=== PATIENT | female | born 1985 | race American Indian/Alaskan Native ===

== ENCOUNTER 2019-12-14 08:27 | Outpatient (CLI) | payer MEDICAID ==
[2019-12-14 09:33] LABS: Bacteria,Urine 2+ /HPF (Negative); Bilirubin,Urine NEG (Negative); Blood,Urine SM (Negative); Color,Urine Yellow (Yellow); Mucus,Urine 1+ /HPF; Protein,Urine <15 mg/dL mg/dL (Negative); Urobilinogen,Urine < 2.0 mg/dL (<2.0)
[2019-12-14 11:22] VITALS: BP 125/72
== END 2019-12-14 11:31 | disposition home or self-care (01) ==
LOC: TRG 08:27
PROVIDERS: ATTEND Obstetrics & Gynecology
DX: O26.893 Other specified pregnancy related conditions, third trimester (principal); O47.03 False labor before 37 completed weeks of gestation, third trimester; R51 Headache
CPT/HCPCS: 59025; 81001; 82150; 82570

== ENCOUNTER 2020-01-07 13:12 | Inpatient (IN) | payer MEDICAID ==
[2020-01-07] MEDS ORDERED: ePHEDrine SULFATE 50 MG/1 ML INJ IV PRN (14:02)
[2020-01-07] MEDS ORDERED: MINERAL OIL 30 ML ORAL LIQD PO PRN (14:02)
[2020-01-07] MEDS ORDERED: TERBUTALINE 1 MG/1 ML INJ IVP PRN (14:02)
[2020-01-07] MEDS ORDERED: LIDOCAINE (2%) 20 MG/1 ML VIAL 20 ML MDV INFILTRATI ONE (14:02)
[2020-01-07] MEDS ORDERED: AMPICILLIN/NS 2 GM/100 ML 2 GM/100 ML BAG IV ONE (14:02)
[2020-01-07] MEDS ORDERED: TERBUTALINE 1 MG/1 ML INJ SUB-Q PRN (14:02)
[2020-01-07] MEDS ORDERED: OXYTOCIN 20 UNIT/1000ML DRIP 20 UNITS/1,000 ML BAG IV SCH (15:00)
[2020-01-07] MEDS ORDERED: OXYTOCIN DRIP 30 UNITS/500 ML BAG IV SCH (15:00)
[2020-01-07] MEDS: LACTATED RINGERS 1,000 ML IV SCH ×3 (15:30→19:30)
[2020-01-07 16:02] LABS: Hematocrit 35.2 % (30.3-42.9); Hemoglobin 11.5 gm/dl (10.1-14.3); Mean Corpuscular HGB Conc 33 % (30-34); Mean Corpuscular Volume 78 fl (79-97); Platelet Count 240 K/mm3 (140-440); Red Blood Count 4.52 M/mm3 (3.65-5.03); Red Cell Distribution Width 15.5 % (13.2-15.2)
[2020-01-07 16:10] LABS: Bilirubin,Urine NEG (Negative); Blood,Urine SM (Negative); Color,Urine Yellow (Yellow); Mucus,Urine FEW /HPF; Protein,Urine <15 mg/dL mg/dL (Negative); Urobilinogen,Urine < 2.0 mg/dL (<2.0)
[2020-01-07 16:24] LABS: Alanine Aminotransferase 11 units/L (7-56)
[2020-01-07] MEDS ORDERED: BUTORPHANOL 2 MG/1 ML INJ IV PRN (17:52)
[2020-01-07] MEDS ORDERED: fentaNYL 100 MCG/2 ML INJ IV PRN (17:52)
--- NOTE | 2020-01-07 18:03 | History and Physical Report ---
History of Present Illness Date of examination: 01/07/20 Date of admission: 01/07/20 13:12 Chief complaint: Leaking fluid History of present illness: 34yo G 5 P 2 0 2 2 @ 39 weeks 1 day here for direct admission from the office secondary to spontaneous rupture of membranes. She reports leaking clear fluid since about 5am. SROM confirmed at the office. She denies headadche, visual disturbances or RUQ pain. She is a [employer] patient who initiated care at 12 weeks gestation. 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 She has a h/o hirsutism. LABS: B pos, Antibody Screen neg, Pap Smear (ASCUS, neg HR HPV), RI, VDRL NR, HBsAg neg, HIV neg, HSV II pos, MSAFP neg, Diabetes Screen 137, 3hr GTT (95, 155, 135, 74), GC/CT/Trich neg, GBS pos. 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 denies: smoking, alcohol abuse, prescription drug abuse, IV drug use - Obstetrical History Expected Date of Delivery: 01/13/20 Actual Gestation: 39 Week(s) 1 Day(s) : 5 Para: 2 Hx # Term Pregnancies: 2 Number of Pregnancies: 0 Spontaneous Abortions: 2 Induced : 0 Number of Living Children: 2 #1 Infant Gender: Female year: 2,004 (02/20/2004) Birthweight: 3.033 kg (6 lbs 11 oz) Method of Delivery: Vaginal Gestational age at delivery: 39 Complications: none #2 Gender: Female year: 2, (06/27/2007) Birthweight: 3.515 kg (7 lbs 12 oz) Method of Delivery: Vaginal Gestational age at delivery: 40 Complications: none Medications and Allergies Allergies Allergy/AdvReac Type Severity Reaction Status Date / Time No Known Allergies Allergy Unverified 12/14/19 08:59 Active Meds: Active Medications Butorphanol Tartrate (Stadol) 2 mg IV Q2H PRN PRN Reason: Pain , Severe (7-10) Ephedrine Sulfate (Ephedrine Sulfate) 10 mg IV Q2M PRN PRN Reason: Hypotension Fentanyl (Sublimaze) 100 mcg IV Q2H PRN PRN Reason: Labor Pain Oxytocin/Sodium Chloride (Pitocin/Ns 20 Unit/1000ml Drip) 20 units in 1,000 mls @ 125 mls/hr IV DIRECT ANGEL Oxytocin/Sodium Chloride (Pitocin/Ns 30 Unit/500ml) 30 units in 500 mls @ 1 mls/hr IV TITR ANGEL; Protocol Last Titration: 01/07/20 17:11 Dose: 1 milliunits/min, 1 mls/hr Documented by: Lactated Ringer's (Lactated Ringers) 1,000 mls @ 125 mls/hr IV DIRECT ANGEL Last Admin: 01/07/20 17:05 Dose: 125 mls/hr Documented by: Mineral Oil (Mineral Oil) 30 ml PO QHS PRN PRN Reason: Constipation Terbutaline Sulfate (Brethine) 0.25 mg SUB-Q ONCE PRN PRN Reason: Hyperstimulation/Hypertonicity Terbutaline Sulfate (Brethine) 0.25 mg IVP ONCE PRN PRN Reason: Hyperstimulation/Hypertonicity Review of Systems All systems: negative - Vital Signs Vital signs: Vital Signs Pulse BP 87 119/69 01/07/20 14:14 01/07/20 14:14 Temp Pulse Resp BP Pulse Ox 88 132/63 96 01/07/20 17:32 01/07/20 17:32 01/07/20 15:34 - Obstetrical FHR: auscultation normal, category 2 FHR comments: baseline 130, minimal variability, 15x15 accels, no decels Uterine Contraction Monitor Mode: External Cervical Dilatation: 3 Cervical Effacement Percentage: 70 station: -3 Uterine Contraction Pattern: Regular Results Result Diagrams: 01/07/20 15:45 01/07/20 15:45 Abnormal lab results 01/07/20 01/07/20 Range/Units 15:45 15:45 MCV 78 L (79-97) fl MCH 25 L (28-32) pg RDW 15.5 H (13.2-15.2) % Creatinine 0.6 L (0.7-1.2) mg/dL All other labs normal. Assessment and Plan - Patient Problems (1) 39 weeks gestation of Current Visit: Yes Status: Acute (2) Spontaneous rupture of amniotic membranes Current Visit: Yes Status: Acute (3) Active labor at term Current Visit: Yes Status: Acute Plan to address problem: Admit to L&D with routine labor orders Start Oxytocin for labor augmentation Anticipate vaginal delivery (4) Group B Streptococcus carrier, +RV culture, currently Current Visit: Yes Status: Acute Plan to address problem: start ampicillin for GBS prophylaxis (5) Elevated BP without diagnosis of hypertension Current Visit: Yes Status: Acute Plan to address problem: PIH labs ordered - WNL
[2020-01-07 18:07] LABS: Amphetamine Screen,Urine PRESUMPTIVE NEGATIVE; Benzodiazepines Screen,Urine PRESUMPTIVE NEGATIVE; Cannabinoid Screen,Urine PRESUMPTIVE NEGATIVE; Cocaine Screen,Urine PRESUMPTIVE NEGATIVE; Methadone Screen,Urine PRESUMPTIVE NEGATIVE; Opiate Screen,Urine PRESUMPTIVE NEGATIVE
[2020-01-07] MEDS ORDERED: AMPICILLIN/NS 1 GM/50 ML 1 GM/50 ML BAG IV ONE (19:28)
[2020-01-07] MEDS ORDERED: AMPICILLIN/NS 1 GM/50 ML 1 GM/50 ML BAG ONE (19:30)
[2020-01-07] MEDS ORDERED: ONDANSETRON 4 MG/2 ML INJ IV PRN (22:07)
[2020-01-07] MEDS ORDERED: LANOLIN/ZINC/DIMETHICONE (LANSINOH) 7 GM TP PRN (22:07)
[2020-01-07] MEDS ORDERED: diphenhydrAMINE 25 MG CAP PO PRN (22:07)
[2020-01-07] MEDS ORDERED: PROMETHAZINE 25 MG RECT SUPP PR PRN (22:07)
[2020-01-07] MEDS ORDERED: WITCH HAZEL/ GLYCERIN PAD TP PRN (22:07)
[2020-01-07] MEDS ORDERED: PROMETHAZINE 25 MG TAB PO PRN (22:07)
[2020-01-07] MEDS ORDERED: HYDROcodone/ACETAMINOPHEN 5-325 MG TAB PO PRN (22:07)
[2020-01-07] MEDS ORDERED: MAGNESIUM HYDROXIDE (MOM) ORAL LIQD UDC PO PRN (22:07)
[2020-01-07] MEDS ORDERED: ACETAMINOPHEN 325 MG TAB PO PRN (22:07)
--- NOTE | 2020-01-07 22:15 | Procedure Note ---
OB Delivery Note - Delivery Date of Delivery: 01/07/20 (21:58) Surgeon: SERJIO MCDONALD Estimated blood loss: other (250ml) - Vaginal Delivery position: OA Intrapartum events: none Delivery induction: oxytocin Delivery augmentation: pitocin Delivery monitor: external FHT, external uterine Route of delivery: Delivery placenta: spontaneous Delivery cord: 3 umbilical vessels Episiotomy: none Delivery laceration: none Delivery comments: Patient pushed over an intact perineum to delivery of a viable female with weight 3155gms and 8,9. No Nuchal cord. Delivery of the head and anterior shoulder atraumatic. Spontaneous cry at delivery. Baby placed on maternal abdomen with delayed cord clamping. Cord was clamped and cut after ~1 minute and baby handed to waiting NICU staff. An intact placenta with three vessel cord delivered spontaneously.Inspection of the vagina, cervix and perineum revealed intact anatomy with no lacerations. Two small hemostatic ab rasions noted at the introitus and right labia did not require repair. All sponge, needle and instrument counts correctx2. No complications. Mom and baby to in stable condition. EBL 250ml. - Infant A at 1 minute: 8 at 5 minutes: 9 Infant Gender: Female (weight 3155gms)
[2020-01-07] MEDS: IBUPROFEN 600 MG TAB PO SCH (23:32)
[2020-01-08] MEDS: IBUPROFEN 600 MG TAB PO SCH ×2 (06:12→13:59)
--- NOTE | 2020-01-08 10:19 | Progress Note ---
Assessment and Plan - Patient Problems (1) Status post vaginal delivery Current Visit: Yes Status: Acute Plan to address problem: Continue routine PP orders Anticipate d/c home tomorrow (2) Elevated blood pressure reading Current Visit: Yes Status: Acute Plan to address problem: Labatelol 200mg po BID Continue to monitor B/Ps F/U in 1 week post d/c in office for B/P check Subjective - Subjective Date of service: 01/08/20 Principal diagnosis: S/P / PPD#1; Elevated B/Ps Interval history: See admission H & P; OB delivery summary and PP progress notes Patient reports: appetite normal, voiding normally, pain well controlled, flatus, ambulating normally, other (Reports some frequent H/A's, denies visual changes) : doing well, bottle feeding Objective - Vital Signs Latest vital signs: Vital Signs Temp Pulse Resp BP BP Pulse Ox 01/08/20 07:52 98.3 F 72 18 130/83 97 01/08/20 07:12 18 01/08/20 06:12 18 01/08/20 04:31 98.0 F 63 20 145/65 96 01/08/20 00:32 18 01/08/20 00:30 98.3 F 67 18 142/67 99 01/07/20 23:29 98.4 F 74 18 136/78 97 01/07/20 23:25 74 134/70 01/07/20 22:59 76 150/74 01/07/20 22:46 80 163/79 01/07/20 22:29 85 150/82 01/07/20 22:27 81 152/78 01/07/20 22:08 91 H 97 01/07/20 22:03 90 97 01/07/20 21:58 107 H 98 01/07/20 21:53 97 H 97 01/07/20 21:48 97 H 97 01/07/20 21:43 96 H 97 01/07/20 21:38 96 H 97 01/07/20 21:33 85 97 01/07/20 21:32 94 H 93 01/07/20 21:30 81 143/82 01/07/20 21:29 94 H 188/90 01/07/20 21:28 98.3 F 86 24 98 01/07/20 21:23 98 H 98 01/07/20 21:18 91 H 96 01/07/20 21:13 100 H 98 01/07/20 21:08 82 98 01/07/20 21:03 93 H 97 01/07/20 20:59 94 H 137/86 94 01/07/20 20:58 90 95 01/07/20 20:53 87 96 01/07/20 20:51 94 H 140/88 01/07/20 20:48 82 97 01/07/20 20:43 97 H 98 01/07/20 20:38 103 H 99 01/07/20 20:33 97 H 97 01/07/20 20:31 92 H 171/90 01/07/20 20:28 102 H 97 01/07/20 20:23 90 97 01/07/20 20:18 95 H 97 01/07/20 20:00 92 H 138/87 01/07/20 19:31 92 H 140/82 01/07/20 18:59 92 H 119/68 01/07/20 17:32 88 132/63 01/07/20 17:30 83 148/79 01/07/20 16:15 77 156/81 01/07/20 15:34 98 H 96 01/07/20 15:29 94 H 97 01/07/20 15:24 86 96 01/07/20 15:19 87 97 01/07/20 15:14 89 131/75 97 01/07/20 15:09 89 96 01/07/20 15:04 95 H 96 01/07/20 14:59 81 97 01/07/20 14:57 98 H 94 01/07/20 14:54 81 96 01/07/20 14:49 83 94 01/07/20 14:44 82 97 01/07/20 14:39 83 96 01/07/20 14:34 87 96 01/07/20 14:29 84 97 01/07/20 14:15 98.3 F 01/07/20 14:14 87 119/69 Intake and Output 01/07/20 01/08/20 01/08/20 23:59 07:59 15:59 Intake Total 500.083 120 Output Total 400 400 Balance 100.083 -400 120 Intake: IV 500.083 Lactated Ringers 1,000 ml 500.000 @ 125 mls/hr IV DIRECT ANGEL Rx#:[id number] PITOCin/NS 30 UNIT/500ML 0.083 30 units In 500 ml @ 1 MILLIUNITS/MIN 1 mls/hr IV TITR ANGEL Rx#:[id number] Oral 120 Output: Urine 400 400 Void 400 400 Other: Total, Intake Amount 120 Total, Output Amount 400 400 # Voids Void 1 1 1 Estimated Blood Loss 250 - Exam Breasts: Present: normal Cardiovascular: Present: Regular rate Lungs: Present: Normal air movement Abdomen: Present: soft Uterus: Present: firm, fundal height below umbilicus (U-2) Extremities: Present: normal Deep Tendon Reflex Grade: Normal +2 - Labs Labs: Abnormal lab results 01/07/20 01/07/20 Range/Units 15:45 15:45 MCV 78 L (79-97) fl MCH 25 L (28-32) pg RDW 15.5 H (13.2-15.2) % Creatinine 0.6 L (0.7-1.2) mg/dL
[2020-01-08 10:46] LABS: Hemoglobin 9.6 gm/dl (10.1-14.3)
[2020-01-09 08:57] VITALS: BP 134/83
--- NOTE | 2020-01-09 11:59 | Progress Note ---
Assessment and Plan A: PP Day # 2 HTN Asymptomatic Anemia P: Follow Routine Orders Continue Labetolol 200mg PO; Continue at home Continue FeSO4 BID; continue at home D/C Home today RTO in one week Subjective - Subjective Date of service: 01/09/20 Principal diagnosis: S/P / PPD#1; Elevated B/Ps Patient reports: appetite normal, voiding normally, pain well controlled, flatus, ambulating normally [place]: doing well, bottle feeding Objective - Vital Signs Latest vital signs: Vital Signs Temp Pulse Resp BP BP Pulse Ox 01/09/20 10:12 80 134/83 01/09/20 08:14 98.0 F 80 20 134/83 97 01/09/20 04:35 80 20 118/71 01/09/20 00:48 97.9 F 85 20 107/58 96 01/08/20 16:41 98.5 F 78 18 111/68 95 01/08/20 13:59 72 130/83 Intake and Output 01/08/20 01/09/20 01/09/20 22:59 06:59 14:59 Intake Total 840 Balance 840 Intake: Oral 600 Intake, Free Water 240 Other: Total, Intake Amount 600 # Voids Void 3 - Exam Breasts: Present: normal Cardiovascular: Present: Regular rate Lungs: Present: Clear to auscultation, Normal air movement Abdomen: Present: normal appearance, soft, normal bowel sounds Uterus: Present: normal, firm, fundal height below umbilicus Extremities: Present: normal
--- NOTE | 2020-01-09 12:06 | Discharge Summary ---
Providers - Providers Date of Admission: 01/07/20 13:12 Date of discharge: 01/09/20 Attending physician: SERJIO MCDONALD MD Primary care physician: SERJIO MCDONALD MD Hospitalization Reason for admission: rupture of membranes Delivery: Episiotomy: none Laceration: none Other procedures: none complications: none Discharge diagnosis: IUP at term delivered [place] baby: female Condition at discharge: Good Disposition: DC-01 TO HOME OR SELFCARE Plan - Discharge Medications Prescriptions: Ibuprofen [Motrin] 600 mg PO Q8H PRN #30 tablet PRN Reason: Pain - Provider Discharge Summary Activity: routine, no sex for 6 weeks, no heavy lifting 4 weeks, no strenuous exercise Diet: routine Instructions: routine Additional instructions: [] Smoking cessation referral if applicable(refer to patient education folder for contact #) [] Refer to [facility] Booklet Call your doctor immediately for: * Fever > 100.5 * Heavy vaginal bleeding ( >1 pad per hour) * Severe persistent headache * Shortness of breath * Reddened, hot, painful area to leg or breast * Drainage or odor from incision. * Keep incision clean and dry at all times and follow doctor's instructions regarding bathing/showering - Follow up plan Follow up: SERJIO MCDONALD MD [Primary Care Provider] - 7 Days
[2020-01-09] MEDS: IBUPROFEN 600 MG TAB PO SCH (18:14)
== END 2020-01-09 14:00 | disposition home or self-care (01) | DRG 775 ==
LOC: LD 13:12 → OB 23:43
PROVIDERS: ADMIT Obstetrics & Gynecology; ATTEND Obstetrics & Gynecology
PROC: 10E0XZZ Delivery of Products of Conception, External Approach (ICD-10-PCS; principal; 2020-01-07)
PROC: 3E033VJ Introduction of Other Hormone into Peripheral Vein, Percutaneous Approach (ICD-10-PCS; 2020-01-07)
DX: O99.824 Streptococcus B carrier state complicating childbirth (principal); O99.02 Anemia complicating childbirth; D64.9 Anemia, unspecified; O16.4 Unspecified maternal hypertension, complicating childbirth; O99.214 Obesity complicating childbirth; E66.9 Obesity, unspecified; Z90.49 Acquired absence of other specified parts of digestive tract; Z80.3 Family history of malignant neoplasm of breast; Z80.42 Family history of malignant neoplasm of prostate; Z82.5 Family history of asthma and other chronic lower respiratory diseases; Z3A.39 39 weeks gestation of pregnancy; Z37.0 Single live birth
CPT/HCPCS: 36415; 80307; 81001; 82565; 83615; 84450; 84460; 84550; 85014; 85018; 85027; 86850; 86900; 86901; G0378; J0290; J2590; J7120

== ENCOUNTER 2021-06-17 08:48 | Emergency (ER) | payer MEDICAID ==
[2021-06-17] MEDS ORDERED: ASPIRIN 325 MG TAB PO ONE (09:05)
--- NOTE | 2021-06-17 09:26 | XRay Report ---
CHEST 2 VIEWS INDICATION / CLINICAL INFORMATION: CP WITH SOB. COMPARISON: None available. FINDINGS: SUPPORT DEVICES: None. HEART / MEDIASTINUM: The heart size and pulmonary vasculature are normal. The aorta is normal in [place]. LUNGS / PLEURA: No significant pulmonary or pleural abnormality. No pneumothorax. ADDITIONAL FINDINGS: The gallbladder is surgically absent. IMPRESSION: No acute findings. Signer Name: Carmine Garcia MD Signed: 06/17/2021 9:22 AM Workstation Name: [id number]
[2021-06-17 09:42] LABS: Basophils % (Auto) 0.2 % (0.0-1.8); Eosinophils % (Auto) 0.1 % (0.0-4.3); Hematocrit 36.6 % (30.3-42.9); Hemoglobin 11.8 gm/dl (10.1-14.3); Lymphocytes # (Auto) 1.7 K/mm3 (1.2-5.4); Lymphocytes % (Auto) 23.7 % (13.4-35.0); Mean Corpuscular HGB Conc 32 % (30-34); Mean Corpuscular Volume 78 fl (79-97); Monocytes # (Auto) 0.8 K/mm3 (0.0-0.8); Monocytes % (Auto) 11.3 % (0.0-7.3); Platelet Count 242 K/mm3 (140-440); Red Blood Count 4.68 M/mm3 (3.65-5.03); Red Cell Distribution Width 15.4 % (13.2-15.2)
[2021-06-17 09:59] LABS: C-Reactive Protein 0.9 mg/dL (0.00-1.30)
[2021-06-17 10:01] LABS: Alanine Aminotransferase 12 units/L (7-56); Albumin 3.8 g/dL (3.9-5); BUN/Creatinine Ratio 8; Blood Urea Nitrogen 6 mg/dL (7-17); Calcium 8.5 mg/dL (8.4-10.2); Hemolysis Index 3
--- NOTE | 2021-06-17 10:03 | Emergency Department Report ---
ED Chest Pain HPI - General Chief Complaint: Chest Pain Stated Complaint: CHEST PAIN, SOB, HEADACHE, BODY ACHES Time Seen by Provider: 06/17/21 09:18 Source: patient Mode of arrival: Ambulatory Limitations: No Limitations - History of Present Illness Initial Comments: 35-year-old male with no known past medical history presents complaining of chest pain which started last night. She describes the pain as intermittent, sharp lasting 1 to 2 minutes at a time. She also has felt very short of breath. This morning she started with a new cough productive of mucus. She also has a headache and runny nose today. The chest pain is nonradiating. There are no known aggravating or alleviating factors. In addition to these complaints, on review of systems she does not say she has had pain in her left calf just distal to the knee since all of this started. She has had no recent surgery, travel, or prolonged immobilization. She is not vaccinated against the novel coronavirus. Her LMP was May 31. Severity scale (0 -10): 5 - Related Data Home Medications Medication Instructions Recorded Confirmed Last Taken Colace CAP 1 tab PO DAILY 01/07/20 01/07/20 01/06/20 Iron 1 tab PO BID 01/07/20 01/07/20 01/06/20 Vitamin 1 tab PO DAILY 01/07/20 01/07/20 01/06/20 Previous Rx's Medication Instructions Recorded Last Taken Type Ibuprofen [Motrin] 600 mg PO Q8H PRN #30 tablet 01/08/20 Unknown Rx Allergies Allergy/AdvReac Type Severity Reaction Status Date / Time No Known Allergies Allergy Verified 06/17/21 08:52 Heart Score - HEART Score History: Slightly suspicious EKG: Non-specific Age: < 45 Risk factors: No known risk factors Troponin: < normal limit HEART Score: 1 - EKG Read Time Time EKG Completed: 08:58 EKG Read Time: 09:04 ED Review of Systems ROS: Stated complaint: CHEST PAIN, SOB, HEADACHE, BODY ACHES Other details as noted in HPI Constitutional: fever, malaise. denies: chills Eyes: denies: eye pain, vision change ENT: other (rhinorrhea). denies: ear pain, throat pain, congestion Respiratory: cough. denies: shortness of breath Cardiovascular: chest pain. denies: palpitations Gastrointestinal: denies: abdominal pain, nausea, vomiting Genitourinary: denies: dysuria, frequency Musculoskeletal: denies: back pain Skin: denies: rash Neurological: headache. denies: weakness, numbness, paresthesias, confusion, vertigo ED Past Medical Hx - Past Medical History Hx Hypertension: No Hx Congestive Heart Failure: No Hx Diabetes: No Hx Deep Vein Thrombosis: No Hx Renal Disease: No Hx Sickle Cell Disease: No Hx Seizures: No Hx Asthma: No Hx COPD: No Hx HIV: No (DENIES) - Surgical History Hx Cholecystectomy: Yes Additional Surgical History: TUUBAL - Social History Smoking Status: Never Smoker Substance Use Type: None - Medications Home Medications: Home Medications Medication Instructions Recorded Confirmed Last Taken Type Colace CAP 1 tab PO DAILY 01/07/20 01/07/20 01/06/20 History Iron 1 tab PO BID 01/07/20 01/07/20 01/06/20 History Vitamin 1 tab PO DAILY 01/07/20 01/07/20 01/06/20 History Ibuprofen [Motrin] 600 mg PO Q8H PRN #30 tablet 01/08/20 Unknown Rx ED Physical Exam - General Limitations: No Limitations - Other Other exam information: GENERAL: Well developed and well nourished. In no acute distress HEAD: Normocephalic. No obvious signs of trauma. ENT: Dry mucous membranes. EYES: Extraocular movements are intact. Pupils are equal round and reactive to light bilaterally NECK: Supple. Full ROM is intact. Trachea is midline. LUNGS: Tachypneic but without accessory muscle use. Equal chest rise bilaterally. Coarse breath sounds throughout with some scattered rales heard. CARDIOVASCULAR: Regular rate and rhythm. No murmurs or rubs. VASCULAR: Cap refill < 2 seconds. 1+ pitting edema of b/l lower extremities. ABDOMEN: Abdomen is soft and nondistended. There is no significant tenderness, guarding or rebound. SKIN: Skin is warm and dry NEURO: Patient is awake, alert, and oriented. 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 No focal deficits. Normal motor and sensory exam throughout. Normal speech. MUSCULOSKELETAL: No obvious deformities. No significant tenderness. Normal ROM throughout. BACK/SPINE: No midline tenderness or step-offs of the C/T/L spine. No costovertebral angle tenderness. ED Course Vital Signs 06/17/21 06/17/21 06/17/21 08:52 09:22 09:31 Temperature 100.4 F H Pulse Rate 101 H 93 H 85 Respiratory 22 19 14 Rate Blood Pressure 131/82 122/75 O2 Sat by Pulse 93 96 96 Oximetry 06/17/21 06/17/21 06/17/21 09:45 10:01 10:15 Temperature Pulse Rate 87 87 87 Respiratory 20 19 24 Rate Blood Pressure 116/76 115/71 120/78 O2 Sat by Pulse 96 96 97 Oximetry 06/17/21 06/17/21 06/17/21 10:31 11:01 11:41 Temperature Pulse Rate 86 81 90 Respiratory 21 20 13 Rate Blood Pressure 122/74 120/74 115/74 O2 Sat by Pulse 95 94 95 Oximetry 06/17/21 06/17/21 06/17/21 12:01 12:31 13:01 Temperature Pulse Rate 92 H 82 78 Respiratory 18 21 17 Rate Blood Pressure 124/78 124/78 O2 Sat by Pulse 97 98 96 Oximetry 06/17/21 06/17/21 06/17/21 13:31 14:01 14:31 Temperature Pulse Rate 89 78 86 Respiratory 19 19 15 Rate Blood Pressure 124/78 124/78 124/78 O2 Sat by Pulse 97 97 97 Oximetry 06/17/21 06/17/21 15:01 15:19 Temperature 98.7 F Pulse Rate 64 Respiratory 15 Rate Blood Pressure 124/78 O2 Sat by Pulse 96 Oximetry MITUL score - Mitul Score Age > 65: (0) No Aspirin use within the Past 7 Days: (0) No 3 or more CAD Risk Factors: (0) No 2 or more Angina events in past 24 hrs: (0) No Known CAD with more than 50% Stenosis: (0) No Elevated Cardiac Markers: (0) No ST Deviation Greater than 0.5mm: (0) No MITUL Score: 0 ED Medical Decision Making - Lab Data Result diagrams: 06/17/21 09:12 06/17/21 09:24 Lab Results 06/17/21 06/17/21 06/17/21 Range/Units 09:12 09:12 09:24 WBC 7.0 (4.5-11.0) K/mm3 RBC 4.68 (3.65-5.03) M/mm3 Hgb 11.8 (10.1-14.3) gm/dl Hct 36.6 (30.3-42.9) % MCV 78 L (79-97) fl MCH 25 L (28-32) pg MCHC 32 (30-34) % RDW 15.4 H (13.2-15.2) % Plt Count 242 (140-440) K/mm3 Lymph % (Auto) 23.7 (13.4-35.0) % Roane % (Auto) 11.3 H (0.0-7.3) % Eos % (Auto) 0.1 (0.0-4.3) % Baso % (Auto) 0.2 (0.0-1.8) % Lymph # (Auto) 1.7 (1.2-5.4) K/mm3 Roane # (Auto) 0.8 (0.0-0.8) K/mm3 Eos # (Auto) 0.0 (0.0-0.4) K/mm3 Baso # (Auto) 0.0 (0.0-0.1) K/mm3 Seg Neutrophils % 64.7 (40.0-70.0) % Seg Neutrophils # 4.6 (1.8-7.7) K/mm3 D-Dimer (0-234) ng/mlDDU Sodium 137 (137-145) mmol/L Potassium 3.6 (3.6-5.0) mmol/L Chloride 100.7 (98-107) mmol/L Carbon Dioxide 22 (22-30) mmol/L Anion Gap 18 mmol/L BUN 6 L (7-17) mg/dL Creatinine 0.8 (0.6-1.2) mg/dL Estimated GFR > 60 ml/min BUN/Creatinine Ratio 8 % Glucose 92 (65-100) mg/dL Calcium 8.5 (8.4-10.2) mg/dL Ferritin (10.0-200.0) ng/mL Total Bilirubin < 0.20 (0.1-1.2) mg/dL AST 15 (5-40) units/L ALT 12 (7-56) units/L Alkaline Phosphatase 110 (35-129) units/L Lactate Dehydrogenase (91-180) units/L Troponin T < 0.010 (0.00-0.029) ng/mL C-Reactive Protein (0.00-1.30) mg/dL Total Protein 4.6 L (6.3-8.2) g/dL Albumin 3.8 L (3.9-5) g/dL Albumin/Globulin Ratio 4.8 % Procalcitonin < 0.05 (<0.15) ng/mL HCG, Qual (Negative) Coronavirus (PCR) (Negative) 06/17/21 06/17/21 06/17/21 Range/Units 09:24 09:24 09:24 WBC (4.5-11.0) K/mm3 RBC (3.65-5.03) M/mm3 Hgb (10.1-14.3) gm/dl Hct (30.3-42.9) % MCV (79-97) fl MCH (28-32) pg MCHC (30-34) % RDW (13.2-15.2) % Plt Count (140-440) K/mm3 Lymph % (Auto) (13.4-35.0) % Roane % (Auto) (0.0-7.3) % Eos % (Auto) (0.0-4.3) % Baso % (Auto) (0.0-1.8) % Lymph # (Auto) (1.2-5.4) K/mm3 Roane # (Auto) (0.0-0.8) K/mm3 Eos # (Auto) (0.0-0.4) K/mm3 Baso # (Auto) (0.0-0.1) K/mm3 Seg Neutrophils % (40.0-70.0) % Seg Neutrophils # (1.8-7.7) K/mm3 D-Dimer 543.81 H (0-234) ng/mlDDU Sodium (137-145) mmol/L Potassium (3.6-5.0) mmol/L Chloride (98-107) mmol/L Carbon Dioxide (22-30) mmol/L Anion Gap mmol/L BUN (7-17) mg/dL Creatinine (0.6-1.2) mg/dL Estimated GFR ml/min BUN/Creatinine Ratio % Glucose 93 (65-100) mg/dL Calcium (8.4-10.2) mg/dL Ferritin 20.0 (10.0-200.0) ng/mL Total Bilirubin (0.1-1.2) mg/dL AST (5-40) units/L ALT (7-56) units/L Alkaline Phosphatase (35-129) units/L Lactate Dehydrogenase 160 (91-180) units/L Troponin T (0.00-0.029) ng/mL C-Reactive Protein 0.90 (0.00-1.30) mg/dL Total Protein (6.3-8.2) g/dL Albumin (3.9-5) g/dL Albumin/Globulin Ratio % Procalcitonin (<0.15) ng/mL HCG, Qual (Negative) Coronavirus (PCR) (Negative) 06/17/21 06/17/21 06/17/21 Range/Units 09:24 10:49 13:49 WBC (4.5-11.0) K/mm3 RBC (3.65-5.03) M/mm3 Hgb (10.1-14.3) gm/dl Hct (30.3-42.9) % MCV (79-97) fl MCH (28-32) pg MCHC (30-34) % RDW (13.2-15.2) % Plt Count (140-440) K/mm3 Lymph % (Auto) (13.4-35.0) % Roane % (Auto) (0.0-7.3) % Eos % (Auto) (0.0-4.3) % Baso % (Auto) (0.0-1.8) % Lymph # (Auto) (1.2-5.4) K/mm3 Roane # (Auto) (0.0-0.8) K/mm3 Eos # (Auto) (0.0-0.4) K/mm3 Baso # (Auto) (0.0-0.1) K/mm3 Seg Neutrophils % (40.0-70.0) % Seg Neutrophils # (1.8-7.7) K/mm3 D-Dimer (0-234) ng/mlDDU Sodium (137-145) mmol/L Potassium (3.6-5.0) mmol/L Chloride (98-107) mmol/L Carbon Dioxide (22-30) mmol/L Anion Gap mmol/L BUN (7-17) mg/dL Creatinine (0.6-1.2) mg/dL Estimated GFR ml/min BUN/Creatinine Ratio % Glucose (65-100) mg/dL Calcium (8.4-10.2) mg/dL Ferritin (10.0-200.0) ng/mL Total Bilirubin (0.1-1.2) mg/dL AST (5-40) units/L ALT (7-56) units/L Alkaline Phosphatase (35-129) units/L Lactate Dehydrogenase (91-180) units/L Troponin T < 0.010 (0.00-0.029) ng/mL C-Reactive Protein (0.00-1.30) mg/dL Total Protein (6.3-8.2) g/dL Albumin (3.9-5) g/dL Albumin/Globulin Ratio % Procalcitonin (<0.15) ng/mL HCG, Qual Negative (Negative) Coronavirus (PCR) Positive A (Negative) - EKG Data -: EKG Interpreted by Me - EKG Data 06/17/21 10:04 Normal sinus rhythm. Left axis deviation. Left anterior fascicular block. Otherwise normal intervals. Nonspecific T wave inversions. No significant ST segment abnormalities - Radiology Data CHEST 2 VIEWS INDICATION / CLINICAL INFORMATION: CP WITH SOB. COMPARISON: None available. FINDINGS: SUPPORT DEVICES: None. HEART / MEDIASTINUM: The heart size and pulmonary vasculature are normal. The aorta is normal in caliber. LUNGS / PLEURA: No significant pulmonary or pleural abnormality. No pneumothorax. ADDITIONAL FINDINGS: The gallbladder is surgically absent. IMPRESSION: No acute findings. Signer Name: Carmine Garcia MD Signed: 06/17/2021 8:22 AM Workstation Name: [id number] CTA CHEST WITH CONTRAST INDICATION / CLINICAL INFORMATION: assess for PE 100 ML OMNI 350 . TECHNIQUE: Axial CT images were obtained through the chest after injection of 100 mL's of Omnipaque 350 IV contrast. 3 plane MIP and/or 3D reconstructions were produced. All CT scans at this location are performed using CT dose reduction for ALARA by means of automated exposure control. COMPARISON: None available. FINDINGS: PULMONARY ARTERIES: No pulmonary emboli. THORACIC AORTA: No significant abnormality. HEART: No significant abnormality. CORONARY ARTERY CALCIFICATION: None. MEDIASTINUM / PEYMAN: No significant abnormality. PLEURA: No pleural effusion. No pneumothorax. LUNGS: No acute air space or interstitial disease. There is subsegmental atelectasis versus scarring in the bilateral lung bases. ADDITIONAL FINDINGS: None. UPPER ABDOMEN: No acute findings. SKELETAL STRUCTURES: No significant osseous abnormality. IMPRESSION: 1. No CT evidence for pulmonary embolism. 2. No acute findings. Signer Name: Pietro Danielle DO Signed: 06/17/2021 11:14 AM Workstation Name: [id number] - Medical Decision Making 35-year-old female presenting with 1 day of chest pain and shortness of breath along with cough which started today. She is noted to be febrile with a temperature of 100.4 she is tachycardic in the 100s and her initial oxygen saturation was 93 to 94% on room air. Physical examination reveals dry mucous membranes and coarse breath sounds throughout with some scattered rales. She has 1+ pitting edema bilaterally. The patient has had some labs drawn in triage and had a chest x-ray performed which was negative. We will perform broad wo rk-up including a full set of labs, EKG. Although the patient has symptoms of COVID-19 versus other upper respiratory infection, given O2 sat of 93-94% on room air with lung auscultation revealing coarse breath sounds with scattered rales and negative CXR with tachycardia and one day of left calf pain, will perform CTA of the chest to assess for evidence of pulmonary embolism. Will also obtain venous US of the LLE to assess for DVT. We will give 1 L of IV fluids, aspirin 325 mg and Tylenol and reassess frequently On repeat assessment at 11:30 AM, the patient is resting comfortably in the bed. She is in no acute distress. Labs have resulted and reveal no significant leukocytosis or anemia. Creatinine is within normal range and there are no significant electrolyte abnormalities. Initial troponin is negative. The patient's D-dimer is elevated. On repeat assessment at 12:35 PM, the patient reports that she feels much better. She no longer has any chest pain. She does not feel short of breath. CTA of the chest reveals no evidence of pulmonary embolism, pneumonia, or other acute abnormality. Left lower extremity DVT ultrasound still pending. I spoke with the patient regarding the fact that although her heart score is low given that she presented with chest pain, we awaiting for a repeat troponin and the final result of her DVT ultrasound. Second troponin has come back negative and the DVT ultrasound has been read as negative. At no point has the patient been hypoxic and her oxygen saturation has not dropped below 93%. I spoke with the patient again and she still feels much better. I encouraged her to quarantine until she receives the results of the coronavirus test and if positive she should quarantine and isolate from others for 10 days from symptom onset. I encouraged her to stay hydrated with fluids containing electrolytes such as Gatorade or Pedialyte. I encouraged her to take ibuprofen 600 mg up to 3 times daily as needed with food for fever or body aches. I also asked the patient to purchase a pulse oximeter, but she states she already owns 1. I asked her to monitor her oxygen saturation and return to the emergency department should her oxygen saturation drop below 93%. Also her encouraged her to return in the event of significantly worsening symptoms or new concerns. The patient expressed understanding agreement with this plan of care. Critical Care Time: Yes Critical care time in (mins) excluding proc time.: 35 Critical care attestation.: If time is entered above; I have spent that time in minutes in the direct care of this critically ill patient, excluding procedure time. Critical care time was spent in the evaluation/assessment, work-up, and manage ment of chest pain and shortness of breath resulting from COVID-19 pneumonia requiring broad work-up, interpretation of chest x-ray, IV fluids, and frequent reassessment. ED Disposition Clinical Impression: Chest pain, Dehydration, Pneumonia due to COVID-19 virus Disposition: DC-01 TO HOME OR SELFCARE Is pt being admited?: No Condition: Stable Instructions: COVID-19, Nonspecific Chest Pain, Adult, Rehydration, Adult, Viral Respiratory Infection, Prevent the Spread of COVID-19 if You Are Sick - CDC, Dehydration, Adult, Bacterial Pneumonia (ED) Additional Instructions: Please quarantine at home until you get the results of your coronavirus test. If positive, you will need to quarantine for at least 10 days from the first day of your symptoms. Use your pulse oximeter to measure your oxygen saturation and return to the emergency department should your oxygen saturation drop less than 93% when you are breathing regular air. Return to the emergency department for worsening symptoms, inability to tolerate anything by mouth, or any other new concerns. Referrals: PRIMARY CARE, [Primary Care Provider] - 3-5 Days Forms: Work/School Release Form(ED)
[2021-06-17] MEDS ORDERED: ACETAMINOPHEN 325 MG TAB PO ONE (11:09)
[2021-06-17] MEDS ORDERED: SODIUM CHLORIDE 0.9% 1000 ML 1,000 ML IV ONE (11:44)
--- NOTE | 2021-06-17 12:19 | Cat Scan Report ---
CTA CHEST WITH CONTRAST INDICATION / CLINICAL INFORMATION: assess for PE 100 ML OMNI 350 . TECHNIQUE: Axial CT images were obtained through the chest after injection of 100 mL's of Omnipaque 3 50 IV contrast. 3 plane MIP and/or 3D reconstructions were produced. All CT scans at this location ar e performed using CT dose reduction for ALARA by means of automated exposure control. COMPARISON: None available. FINDINGS: PULMONARY ARTERIES: No pulmonary emboli. THORACIC AORTA: No significant abnormality. HEART: No significant abnormality. CORONARY ARTERY CALCIFICATION: None. MEDIASTINUM / PEYMAN: No significant abnormality. PLEURA: No pleural effusion. No pneumothorax. LUNGS: No acute air space or interstitial disease. There is subsegmental atelectasis versus scarring in the bilateral lung bases. ADDITIONAL FINDINGS: None. UPPER ABDOMEN: No acute findings. SKELETAL STRUCTURES: No significant osseous abnormality. IMPRESSION: 1. No CT evidence for pulmonary embolism. 2. No acute findings. Signer Name: Pietro Danielle DO Signed: 06/17/2021 12:14 PM Workstation Name: [id number]
[2021-06-17 12:33] VITALS: BP 124/78
--- NOTE | 2021-06-17 13:43 | Vascular Lab Report ---
DUPLEX DOPPLER LOWER EXTREMITY VEINS, LEFT INDICATION / CLINICAL INFORMATION: Left leg pain. Shortness of breath. Suspected COVID-19. TECHNIQUE: Duplex doppler imaging was performed through the veins of the left lower extremity using venous compr ession and other maneuvers. COMPARISON: None available. FINDINGS: LEFT COMMON FEMORAL VEIN: Negative. LEFT FEMORAL VEIN: Negative. LEFT POPLITEAL VEIN: Negative. LEFT CALF VEINS: Negative. ADDITIONAL FINDINGS: No abnormal mass or fluid collection is seen. IMPRESSION: No sonographic evidence for DVT in the left lower extremity. Signer Name: Carmine Garcia MD Signed: 06/17/2021 1:38 PM Workstation Name: [id number]
--- NOTE | 2021-06-18 12:23 | Electrocardiograph Report ---
[facility] Test Date: 2021-06-17 Test Time: 08:58:57 Pat Name: MERVAT ANNE Department: Room: Gender: F Rater Associate: : 1985 Requested By: THOM JOYCE Order Number: [id number] Reading MD: Hernesto Pruitt Measurements Intervals Tyler Rate: 90 P: 54 DC: 161 QRS: -62 QRSD: 90 T: 11 QT: 355 QTc: 436 Interpretive Statements Sinus rhythm Probable left atrial enlargement Left axis deviation No previous ECG available for comparison Electronically Signed On 06-18-2021 12:23:26 EDT by Hernesto Pruitt
== END 2021-06-17 15:24 | disposition home or self-care (01) ==
LOC: ED 08:48
DX: U07.1 COVID-19 (principal); J12.82 Pneumonia due to coronavirus disease 2019; E86.0 Dehydration; R07.89 Other chest pain; Z90.49 Acquired absence of other specified parts of digestive tract; Z98.51 Tubal ligation status; Z79.1 Long term (current) use of non-steroidal anti-inflammatories (NSAID); Z79.899 Other long term (current) drug therapy
CPT/HCPCS: 36415; 71046; 71275; 80053; 82728; 82947; 83615; 84145; 84484; 84703; 85025; 85379; 86140; 93005; 93971; 96360; 96361; 99291; J7030; Q9967; U0003

== ENCOUNTER 2021-06-24 16:21 | Emergency (ER) | payer MEDICAID ==
[2021-06-24] MEDS ORDERED: SODIUM CHLORIDE 0.9% 500 ML 500 ML IV ONE (16:52)
--- NOTE | 2021-06-24 17:25 | XRay Report ---
CHEST 2 VIEWS INDICATION / CLINICAL INFORMATION: possible Sepsis. COMPARISON: 06/17/2021 FINDINGS: SUPPORT DEVICES: None. HEART / MEDIASTINUM: No significant abnormality. LUNGS / PLEURA: There are low lung volumes bilaterally. There is some crowding of vessels in the lung bases. No focal infiltrate is seen. No pneumothorax is seen. ADDITIONAL FINDINGS: No significant additional findings. IMPRESSION: 1. There are low lung volumes bilaterally Signer Name: Ervin Gresham MD Signed: 06/24/2021 5:21 PM Workstation Name: [id number]
[2021-06-24 17:41] LABS: Basophils % (Auto) 0.8 % (0.0-1.8); Hematocrit 36.8 % (30.3-42.9); Hemoglobin 12.2 gm/dl (10.1-14.3); Lymphocytes # (Auto) 1.5 K/mm3 (1.2-5.4); Lymphocytes % (Auto) 29.1 % (13.4-35.0); Mean Corpuscular HGB Conc 33 % (30-34); Mean Corpuscular Volume 75 fl (79-97); Monocytes # (Auto) 0.4 K/mm3 (0.0-0.8); Platelet Count 218 K/mm3 (140-440); Red Blood Count 4.89 M/mm3 (3.65-5.03); Red Cell Distribution Width 14.7 % (13.2-15.2)
[2021-06-24 17:52] LABS: Alanine Aminotransferase 45 units/L (7-56); Albumin 3.7 g/dL (3.9-5); Blood Urea Nitrogen 7 mg/dL (7-17); Calcium 8.5 mg/dL (8.4-10.2); Hemolysis Index 1
[2021-06-24 17:55] LABS: INR 0.9 (0.87-1.13)
[2021-06-24 17:56] LABS: BUN/Creatinine Ratio 10
[2021-06-25] MEDS ORDERED: SODIUM CHLORIDE 0.9% 1000 ML 1,000 ML IV ONE (06:18)
[2021-06-25] MEDS ORDERED: ACETAMINOPHEN 500 MG TAB PO ONE (06:31)
[2021-06-25] MEDS ORDERED: POTASSIUM CHLORIDE ER 20 MEQ TAB PO ONE (06:36)
--- NOTE | 2021-06-25 06:37 | Emergency Department Report ---
HPI - General Chief Complaint: Arrhythmia/Palpitations Time Seen by Provider: 06/25/21 06:15 - HPI HPI: Room 18 Patient is a 35-year-old female present with a chief complaint of shortness of breath and palpitations. Patient states her symptoms began yesterday with dyspnea on exertion. Patient states she was diagnosed with COVID-19 06/17/2021. Patient states she has had a cough has been productive of white sputum. Patient states she is uncertain if she has had a fever. Patient denies nausea or vomiting. When asked how she is feeling at the time of this interview the patient states her only current symptom is feeling tired ED Past Medical Hx - Surgical History Hx Cholecystectomy: Yes Additional Surgical History: Bilateral tubal ligation - Family History Family history: no significant - Social History Smoking Status: Never Smoker Substance Use Type: None (Denies illicit drug use) - Medications Home Medications: Home Medications Medication Instructions Recorded Confirmed Last Taken Type Ibuprofen [Motrin] 600 mg PO Q8H PRN #30 tablet 01/08/20 06/25/21 Unknown Rx Albuterol Mdi (or & Nicu Only) 2 puff IH QID PRN #8.5 gram 06/25/21 Unknown Rx [ProAir HFA Inhaler] Benzonatate [Tessalon Perles] 100 mg PO Q8HR #30 capsule 06/25/21 Unknown Rx Prednisone [predniSONE 10 mg 10 mg PO .TAPER #1 tab.ds.pk 06/25/21 Unknown Rx (6-Day Pack, 21 Tabs)] levoFLOXacin [Levaquin TAB] 500 mg PO QDAY #7 tablet 06/25/21 Unknown Rx ED Review of Systems ROS: Stated complaint: SOB/FEVER BODY ACHES Other details as noted in HPI Constitutional: fever (?), other (Fatigue) Eyes: denies: eye pain ENT: denies: throat pain Respiratory: shortness of breath, SOB with exertion Cardiovascular: palpitations. denies: chest pain Endocrine: no symptoms reported Gastrointestinal: denies: nausea, vomiting Genitourinary: denies: dysuria Musculoskeletal: denies: back pain Neurological: denies: headache Physical Exam - Physical Exam Vital Signs: Vital Signs 06/24/21 06/25/21 06/25/21 16:26 05:20 05:29 Temperature 100.2 F H 99.2 F Pulse Rate 125 H 104 H Respiratory 22 24 24 Rate Blood Pressure 130/79 Blood Pressure 132/87 [Left] O2 Sat by Pulse 90 94 96 Oximetry Vital Signs 06/24/21 06/25/21 06/25/21 16:26 05:20 05:29 Temperature 100.2 F H 99.2 F Pulse Rate 125 H 104 H Respiratory 22 24 24 Rate Blood Pressure 130/79 Blood Pressure 132/87 [Left] O2 Sat by Pulse 90 94 96 Oximetry 06/25/21 06/25/21 06/25/21 06:00 07:29 09:00 Temperature 98.9 F Pulse Rate 94 H 92 H Respiratory 23 23 Rate Blood Pressure 127/83 122/69 Blood Pressure [Left] O2 Sat by Pulse 97 99 Oximetry 06/25/21 06/25/21 06/25/21 10:00 10:51 11:00 Temperature Pulse Rate 88 93 H Respiratory 19 16 Rate Blood Pressure 133/87 Blood Pressure 119/83 [Left] O2 Sat by Pulse 99 98 Oximetry Physical Exam: GENERAL: The patient is well-developed well-nourished female lying on stretcher not appearing to be in acute distress. [] HEENT: Normocephalic. Atraumatic. Extraocular motions are intact. Patient has moist mucous membranes. NECK: Supple. No meningitic signs are noted. Trachea midline CHEST/LUNGS: Diminished likely secondary to effort. There is no respiratory distress noted. HEART/CARDIOVASCULAR: Regular. There is tachycardia. There is no gallop rub or murmur. ABDOMEN: Abdomen is soft, nontender. Patient has normal bowel sounds. There is no abdominal distention. SKIN: There is no rash. There is no edema. There is no diaphoresis. NEURO: The patient is awake, alert, and oriented. The patient is cooperative. The patient has no focal neurologic deficits. The patient has normal speech. GCS 15 MUSCULOSKELETAL: There is no evidence of acute injury. ED Course Vital Signs 06/24/21 06/25/21 06/25/21 16:26 05:20 05:29 Temperature 100.2 F H 99.2 F Pulse Rate 125 H 104 H Respiratory 22 24 24 Rate Blood Pressure 130/79 Blood Pressure 132/87 [Left] O2 Sat by Pulse 90 94 96 Oximetry - Reevaluation(s) Reevaluation #1: 06/25/21 12:08 Patient is 2-minute walking SPO2 95% on room air. Patient does not complain of shortness of breath just coughing with deep inspiration ED Medical Decision Making - Lab Data Result diagrams: 06/24/21 17:16 06/24/21 17:16 Laboratory Tests 06/24/21 06/24/21 06/24/21 17:16 17:16 17:16 WBC 5.3 RBC 4.89 Hgb 12.2 Hct 36.8 MCV 75 L MCH 25 L MCHC 33 RDW 14.7 Plt Count 218 Lymph % (Auto) 29.1 [place] % (Auto) 8.0 H Eos % (Auto) 0.0 Baso % (Auto) 0.8 Lymph # (Auto) 1.5 [place] # (Auto) 0.4 Eos # (Auto) 0.0 Baso # (Auto) 0.0 Seg Neutrophils % 62.1 Seg Neutrophils # 3.3 PT 12.8 INR 0.90 VBG pH Sodium 132 L Potassium 3.2 L Chloride 92.3 L Carbon Dioxide 26 Anion Gap 17 BUN 7 Creatinine 0.7 Estimated GFR > 60 BUN/Creatinine Ratio 10 Glucose 91 Lactic Acid Calcium 8.5 Total Bilirubin 0.40 AST 47 H ALT 45 Alkaline Phosphatase 85 NT-Pro-B Natriuret Pep Total Protein 7.3 Albumin 3.7 L Albumin/Globulin Ratio 1.0 Urine Color Urine Turbidity Urine pH Ur Specific [place] Urine Protein Urine Glucose (UA) Urine Ketones Urine Blood Urine Nitrite Urine Bilirubin Urine Urobilinogen Ur Leukocyte Esterase Urine WBC (Auto) Urine RBC (Auto) U Epithel Cells (Auto) Urine Bacteria (Auto) RBC Casts Urine Mucus 06/24/21 06/24/21 06/24/21 17:16 17:16 17:16 WBC RBC Hgb Hct MCV MCH MCHC RDW Plt Count Lymph % (Auto) [place] % (Auto) Eos % (Auto) Baso % (Auto) Lymph # (Auto) [place] # (Auto) Eos # (Auto) Baso # (Auto) Seg Neutrophils % Seg Neutrophils # PT INR VBG pH 7.531 H Sodium Potassium Chloride Carbon Dioxide Anion Gap BUN Creatinine Estimated GFR BUN/Creatinine Ratio Glucose Lactic Acid 0.90 Calcium Total Bilirubin AST ALT Alkaline Phosphatase NT-Pro-B Natriuret Pep 6.37 Total Protein Albumin Albumin/Globulin Ratio Urine Color Urine Turbidity Urine pH Ur Specific [place] Urine Protein Urine Glucose (UA) Urine Ketones Urine Blood Urine Nitrite Urine Bilirubin Urine Urobilinogen Ur Leukocyte Esterase Urine WBC (Auto) Urine RBC (Auto) U Epithel Cells (Auto) Urine Bacteria (Auto) RBC Casts Urine Mucus 06/24/21 06/25/21 20:47 Unknown WBC RBC Hgb Hct MCV MCH MCHC RDW Plt Count Lymph % (Auto) [place] % (Auto) Eos % (Auto) Baso % (Auto) Lymph # (Auto) [place] # (Auto) Eos # (Auto) Baso # (Auto) Seg Neutrophils % Seg Neutrophils # PT INR VBG pH Sodium Potassium Chloride Carbon Dioxide Anion Gap BUN Creatinine Estimated GFR BUN/Creatinine Ratio Glucose Lactic Acid 0.80 Calcium Total Bilirubin AST ALT Alkaline Phosphatase NT-Pro-B Natriuret Pep Total Protein Albumin Albumin/Globulin Ratio Urine Color [place] Urine Turbidity Clear Urine pH 6.0 Ur Specific [place] 1.028 Urine Protein 100 mg/dl Urine Glucose (UA) Neg Urine Ketones 80 Urine Blood Mod Urine Nitrite Neg Urine Bilirubin Neg Urine Urobilinogen < 2.0 Ur Leukocyte Esterase Neg Urine WBC (Auto) 8.0 H Urine RBC (Auto) 3.0 U Epithel Cells (Auto) 3.0 Urine Bacteria (Auto) 1+ RBC Casts 1 Urine Mucus 3+ - EKG Data -: EKG Interpreted by Me EKG shows normal: sinus rhythm Rate: tachycardia (108 bpm) - EKG Data When compared to previous EKG there are: previous EKG unavailable Interpretation: nonspecific ST-T wave beatriz (T wave inversions in leads III and aVF) - Radiology Data Radiology results: report reviewed (Chest x-ray), image reviewed (Chest x-ray) interpreted by me: Chest [id number] diaphragm posteriorly seen on the lateral view. Ot herwise no definite focal infiltrates, no pneumothorax [facility] [address] [place] [address] XRay Report Signed Patient: MERVAT ANNE MR# : [id number] : 1985 Acct:[id number] Age/Sex: 35 / F ADM Date: 06/24/21 Loc: ED Attending Dr: Ordering Physician: ED MD MARIN Date of Service: 06/24/21 Procedure(s): XR chest routine 2V Accession Number(s): [id number] cc: ED MD MARIN Fluoro Time In Minutes: CHEST 2 VIEWS INDICATION / CLINICAL INFORMATION: possible Sepsis. COMPARISON: 06/17/2021 FINDINGS: SUPPORT DEVICES: None. HEART / MEDIASTINUM: No significant abnormality. LUNGS / PLEURA: There are low lung volumes bilaterally. There is some crowding of vessels in the lung bases. No focal infiltrate is seen. No pneumothorax is seen. ADDITIONAL FINDINGS: No significant additional findings. IMPRESSION: 1. There are low lung volumes bilaterally Signer Name: Ervin Gresham MD Signed: 06/24/2021 5:21 PM Workstation Name: [id number] Transcribed By: SS Dictated By: Ervin Gresham MD Electronically Authenticated By: Ervin Gresham MD Signed Date/Time: 06/24/211720 DD/ 19 TD/TT: Print Cancel - Differential Diagnosis COVID-19, CHF, dehydration Critical care attestation.: If time is entered above; I have spent that time in minutes in the direct care of this critically ill patient, excluding procedure time. ED Disposition Clinical Impression: COVID-19 virus infection, Cough, UTI (urinary tract infection) Disposition: DC- TO HOME OR SELFCARE Is pt being admited?: No Does the pt Need Aspirin: No Condition: Stable Instructions: COVID-19 Additional Instructions: Return to the emergency department should you develop worsening symptoms, i nability to tolerate food or liquids, high fever or any other concerns Prescriptions: levoFLOXacin [Levaquin TAB] 500 mg PO QDAY #7 tablet Prednisone [predniSONE 10 mg (6-Day Pack, 21 Tabs)] 10 mg PO .TAPER #1 tab.ds.pk Albuterol Mdi (or & Nicu Only) [ProAir HFA Inhaler] 2 puff IH QID PRN #8.5 gram PRN Reason: Shortness Of Breath Benzonatate [Tessalon Perles] 100 mg PO Q8HR #30 capsule Referrals: PRIMARY CARE, [Primary Care Provider] - 3-5 Days [facility] [Provider Group] - 3-5 Days Time of Disposition: 12:11
[2021-06-25 09:46] LABS: Bacteria,Urine 1+ /HPF (Negative); Bilirubin,Urine NEG (Negative); Blood,Urine MOD (Negative); Color,Urine Amber (Yellow); Mucus,Urine 3+ /HPF; Red Blood Cell Casts,Urine 1 /LPF; Urobilinogen,Urine < 2.0 mg/dL (<2.0)
[2021-06-25] MEDS ORDERED: dexAMETHasone 20 MG/5 ML VIAL IV ONE (12:10)
[2021-06-25 12:43] VITALS: BP 120/78
--- NOTE | 2021-06-26 17:38 | Electrocardiograph Report ---
[facility] Test Date: 2021-06-24 Test Time: 16:32:39 Pat Name: MERVAT ANNE Department: Room: Gender: F [employer]: DANISHA : 1985 Requested By: FABIOLA HONG III Order Number: [id number] Reading MD: Michael Melendez Measurements Intervals [place] Rate: 108 P: 45 [place]: 161 QRS: -61 QRSD: 89 T: -7 QT: 326 QTc: 437 Interpretive Statements Sinus tachycardia Left atrial enlargement Inferior infarct, old Loss of R waves in lateral precordial leads,?lead placement. Compared to ECG 06/17/2021 08:58:57,loss of R waves in in lateral preordial leads is new. Myocardial infarct finding now present Electronically Signed On 06-26-2021 17:38:16 EDT by Michael Melendez
== END 2021-06-25 12:59 | disposition home or self-care (01) ==
LOC: ED 16:21
DX: U07.1 COVID-19 (principal); R05 Cough; N39.0 Urinary tract infection, site not specified; Z98.51 Tubal ligation status
CPT/HCPCS: 36415; 71046; 80053; 81001; 82140; 82805; 83880; 85025; 85610; 87040; 87086; 93005; 96361; 96374; 99284; J1100; J7030